=== PATIENT | female | born 1950 | race Caucasian/White ===

== ENCOUNTER → 2016-08-09 | Outpatient (CLI) | payer BC ==
[~2016-08-09] MED LIST: CHANTIX1 TAB PO; FISH OIL500 MG PO; LORTAB 7.5/5001 TAB PO; MULTIPLE VITAMI1 CAP PO; STOOL SOFTENER100 M1 PO; TRICOR67 MG PO; WELLBUTRIN75 MG PO
== END ==
LOC: MC.RAD 07:29
DX: N64.89 Other specified disorders of breast (principal)

== ENCOUNTER → 2017-08-22 | Outpatient (CLI) | payer BC, MEDICARE | LOC: MC.RAD 07:13 | DX: R92.1 Mammographic calcification found on diagnostic imaging of breast (principal) ==

== ENCOUNTER → 2017-12-28 | Outpatient (CLI) | payer BC | LOC: COL.RAD 07:26 | DX: M48.061 Spinal stenosis, lumbar region without neurogenic claudication (principal); M99.73 Connective tissue and disc stenosis of intervertebral foramina of lumbar region; M51.37 Other intervertebral disc degeneration, lumbosacral region; M47.817 Spondylosis without myelopathy or radiculopathy, lumbosacral region; M51.26 Other intervertebral disc displacement, lumbar region; Z98.890 Other specified postprocedural states | CPT/HCPCS: A9585 ==

== ENCOUNTER 2018-12-17 09:30 | Emergency (ER) | payer BC ==
[~2018-12-17] VITALS: Ht 172.7 cm; Wt 108.2 kg
[2018-12-17 09:38] VITALS: TEMP 98
[2018-12-17 09:48] LABS: BASO % 0.4 % (0.0-2.0); EOS # 0.1 (0.0-0.7); EOS % 1.5 % (0-4.0); GRAN # 4.6 (1.4-6.5); GRAN % 63.6 % (42.2-75.2); HEMATOCRIT 39.8 % (37.0-47.0); HEMOGLOBIN 13.3 g/dl (12.5-16.0); LYMPH # 1.8 (1.2-3.4); LYMPH % 24.5 % (20.0-51.0); MEAN CELL VOLUME 91 fl (80.0-100.0); MEAN CORPUSCULAR HEMOGLOBIN 30 pg (27.0-31.0); MEAN CORPUSCULAR HGB CONC 33 g/dl (33.0-37.0); MEAN PLATELET VOLUME 9.9 fl (7.4-10.4); MONO # 0.7 (0.1-0.6); MONO % 9.6 % (1.7-9.3); PLATELET COUNT 221 K/mm3 (130-400); RED BLOOD COUNT 4.37 M/mm3 (4.10-5.30); REDCELL DISTRIBUTION WIDTH-CV 12.2 % (11.5-14.5)
[2018-12-17 10:02] LABS: ALANINE AMINOTRANSFERASE 12 U/L (9-52); ALBUMIN 4.2 gm/dL (3.5-5.0); ALKALINE PHOSPHATASE 56 U/L (50-136); ANION GAP 13 mmol/L (7-16); AST,SGOT 31 U/L (15-37); BILIRUBIN,TOTAL 0.5 mg/dL (0.0-1.0); BLOOD UREA NITROGEN 13 mg/dL (7-17); CALCIUM 9.2 mg/dL (8.4-10.2); CARBON DIOXIDE 25 mmol/L (22-30); CHLORIDE 101 mmol/L (98-107); CREATININE, serum 0.63 (0.52-1.25); GLUCOSE 141 mg/dL (74-106); LIPASE 36 U/L (23-300); POTASSIUM 3.4 mmol/L (3.4-5.0); SODIUM 140 mmol/L (137-145); TOTAL PROTEIN 7.6 gm/dL (6.4-8.2)
[2018-12-17 10:03] LABS: C-REACTIVE PROTEIN < 0.5 mg/dL (0.0-0.9)
[2018-12-17 12:01] LABS: COLLECTION METHOD CLEAN CATCH
[2018-12-17 12:08] LABS: MUCOUS Present /lpf; PH 7 (5-8); SQUAMOUS EPITHELIAL 0-2 /hpf; URINE APPEARANCE Clear; URINE BACTERIA Rare /hpf; URINE BILIRUBIN Negative (NEGATIVE); URINE BLOOD Negative (NEGATIVE); URINE COLOR Yellow; URINE GLUCOSE Negative (NEGATIVE); URINE KETONE Negative (NEGATIVE); URINE LEUKOCYTE ESTERASE Negative (NEGATIVE); URINE NITRATE Negative (NEGATIVE); URINE PROTEIN(semi-quant) Negative (NEGATIVE); URINE RBC 0-2 /hpf; URINE UROBILINOGEN Negative (NEGATIVE)
[2018-12-17 12:18] VITALS: BP 149/80; PULSE 92
== END 2018-12-17 12:24 | disposition home or self-care (01) ==
LOC: COL.ER 09:30
PROVIDERS: Family Medicine
DX: T40.4X1A Poisoning by other synthetic narcotics, accidental (unintentional), initial encounter (principal); Z88.0 Allergy status to penicillin
CPT/HCPCS: J2060; J2405; J7030

== ENCOUNTER 2019-04-26 16:29 | Emergency (ER) | payer BC ==
[~2019-04-26] VITALS: Ht 172.7 cm; Wt 100.0 kg
[~2019-04-26 16:29] MED LIST changes: +AMITIZA24 MCG PO; +CRESTOR 10MG10 MG PO; +CYMBALTA 30MG30 MG PO; +CYMBALTA 60MG60 MG PO; +DITROPAN 5MG TAB5 MG PO; +ENJUVIA PO; +FENTANYL 75MCG TD; +PRILOSEC 20MG20 MG PO; +RELAFEN 50500 MG/TAB; -STOOL SOFTENER100 M1 PO; +STOOL SOFTENER100 M2 PO; +SYNTHROID0.05 MG/TA PO; +TRICOR145 MG PO; -TRICOR67 MG PO; +WELLBUTRIN SR150 M1 PO
[2019-04-26 16:33] VITALS: TEMP 99.5
[2019-04-26 17:14] LABS: BASO % 0.5 % (0.0-2.0); EOS # 0.1 (0.0-0.7); EOS % 1.3 % (0-4.0); GRAN # 4.2 (1.4-6.5); GRAN % 67.4 % (42.2-75.2); HEMATOCRIT 40.4 % (37.0-47.0); HEMOGLOBIN 13.6 g/dl (12.5-16.0); LYMPH # 1.3 (1.2-3.4); LYMPH % 21.2 % (20.0-51.0); MEAN CELL VOLUME 91 fl (80.0-100.0); MEAN CORPUSCULAR HEMOGLOBIN 31 pg (27.0-31.0); MEAN CORPUSCULAR HGB CONC 34 g/dl (33.0-37.0); MEAN PLATELET VOLUME 10.3 fl (7.4-10.4); MONO # 0.6 (0.1-0.6); MONO % 9.4 % (1.7-9.3); PLATELET COUNT 208 K/mm3 (130-400); RED BLOOD COUNT 4.46 M/mm3 (4.10-5.30); REDCELL DISTRIBUTION WIDTH-CV 12.2 % (11.5-14.5)
[2019-04-26 17:17] LABS: PROTHROMBIN TIME 11.4 SECONDS (9.7-12.8)
[2019-04-26 17:26] LABS: ALANINE AMINOTRANSFERASE 13 U/L (9-52); ALBUMIN 4.3 gm/dL (3.5-5.0); ALKALINE PHOSPHATASE 48 U/L (50-136); ANION GAP 11 mmol/L (7-16); AST,SGOT 28 U/L (15-37); BILIRUBIN,TOTAL 0.4 mg/dL (0.0-1.0); BLOOD UREA NITROGEN 19 mg/dL (7-17); CALCIUM 9.8 mg/dL (8.4-10.2); CARBON DIOXIDE 26 mmol/L (22-30); CHLORIDE 103 mmol/L (98-107); CREATININE, serum 0.82 (0.52-1.25); GLUCOSE 101 mg/dL (74-106); POTASSIUM 3.7 mmol/L (3.4-5.0); SODIUM 139 mmol/L (137-145); TOTAL PROTEIN 7.6 gm/dL (6.4-8.2)
[2019-04-26 17:27] LABS: C-REACTIVE PROTEIN < 0.5 mg/dL (0.0-0.9)
[2019-04-26 17:37] LABS: TROPONIN-I < 0.012 ng/mL (0.000-0.035)
[2019-04-26 17:57] LABS: COLLECTION METHOD CLEAN CATCH
[2019-04-26 18:06] LABS: MUCOUS Present /lpf; PH 7 (5-8); SQUAMOUS EPITHELIAL 0-2 /hpf; URINE APPEARANCE Clear; URINE BACTERIA Rare /hpf; URINE BILIRUBIN Negative (NEGATIVE); URINE BLOOD Negative (NEGATIVE); URINE COLOR Yellow; URINE GLUCOSE Negative (NEGATIVE); URINE KETONE Negative (NEGATIVE); URINE LEUKOCYTE ESTERASE Negative (NEGATIVE); URINE NITRATE Negative (NEGATIVE); URINE PROTEIN(semi-quant) Negative (NEGATIVE); URINE RBC 0-2 /hpf; URINE UROBILINOGEN Negative (NEGATIVE)
[2019-04-26 21:05] VITALS: BP 143/75; PULSE 86
== END 2019-04-26 20:51 | disposition home or self-care (01) ==
LOC: COL.ER 16:29
PROVIDERS: Emergency Medicine
DX: R00.0 Tachycardia, unspecified (principal); R06.00 Dyspnea, unspecified
CPT/HCPCS: J2405; J7030; Q9967

== ENCOUNTER → 2019-05-07 | Outpatient (CLI) | payer BC ==
--- NOTE | 2019-05-07 08:15 | NUR ---
Patient feeling nausous today, has migraine, and sucking on cough drop. Rescheduling PFT at this time. Garrett Garcia, RECRUITING AND SELECTION CONSULTANT
== END ==
LOC: COL.PUL 07:44
DX: R06.02 Shortness of breath (principal)

== ENCOUNTER → 2019-05-29 | Outpatient (CLI) | payer BC | LOC: COL.PUL 12:52 | DX: R06.02 Shortness of breath (principal); Z87.891 Personal history of nicotine dependence ==

== ENCOUNTER → 2019-12-27 | Outpatient (CLI) | payer MEDICARE | LOC: MC.RAD 15:49 | DX: Z12.31 Encounter for screening mammogram for malignant neoplasm of breast (principal) ==

== ENCOUNTER → 2020-01-09 | Outpatient (CLI) | payer MEDICARE ==
[~2020-01-09] VITALS: Ht 172.7 cm; Wt 112.3 kg
[~2020-01-09] MED LIST changes: +AMITRIPTYLINE H10 M1 PO; +B-12 500 MCG PO; +NAMENDA 10MG TA10 MG PO; +PREMARIN 0.9MG0.9 MG PO; +PROTONIX 40MG T40 MG PO
[2020-01-09 09:51] VITALS: BP 169/92; PULSE 87
[2020-01-09 10:35] VITALS: BP 136/81; PULSE 78
[2020-01-09 10:45] VITALS: BP 143/78; PULSE 82
[2020-01-09 11:00] VITALS: BP 157/79; PULSE 75
[2020-01-09 11:15] VITALS: BP 145/77; PULSE 74
[2020-01-09 11:30] VITALS: BP 133/86; PULSE 74
== END ==
LOC: COL.RAD 01-08 09:30
DX: M48.061 Spinal stenosis, lumbar region without neurogenic claudication (principal); M51.16 Intervertebral disc disorders with radiculopathy, lumbar region; Z98.1 Arthrodesis status
CPT/HCPCS: Q9965

== ENCOUNTER → 2020-12-26 | Outpatient (CLI) | payer MEDICARE | LOC: COL.RAD 11:08 | DX: M43.16 Spondylolisthesis, lumbar region (principal); M48.062 Spinal stenosis, lumbar region with neurogenic claudication; Z98.1 Arthrodesis status ==

== ENCOUNTER → 2023-08-25 | Outpatient (CLI) | payer MEDICARE | LOC: COL.VAS 10:20 | DX: I51.7 Cardiomegaly (principal); I34.0 Nonrheumatic mitral (valve) insufficiency; I35.0 Nonrheumatic aortic (valve) stenosis ==

== ENCOUNTER 2024-02-13 09:05 | Day surgery (SDC) | payer MEDICARE ==
[~2024-02-13] VITALS: Ht 172.7 cm; Wt 105.9 kg
[~2024-02-13 09:05] MED LIST changes: +LR 1,000 ML IV SCH; +Ondansetron 4 MG/2 ML VIAL IV PRN
[2024-02-13 10:17] VITALS: BP 126/77; PULSE 73; TEMP 97.8
[2024-02-13] MEDS ORDERED: Lidocaine PF 2% (20 MG/ML) 5 ML VIAL ONE (10:30)
[2024-02-13] MEDS ORDERED: LEXAPRO 10MG10 MG PO (10:37)
[2024-02-13] MEDS ORDERED: VESICARE 5MG5 MG PO (10:37)
[2024-02-13] MEDS ORDERED: ESTRACE 1MG1 MG/TAB PO (10:38)
[2024-02-13] MEDS ORDERED: BUSPAR DIVIDOSE15 MG PO (10:39)
[2024-02-13] MEDS ORDERED: ZYRTEC 10MG10 MG PO (10:39)
[2024-02-13] MEDS ORDERED: ARICEPT10 MG PO (10:39)
[2024-02-13 11:15] VITALS: BP 123/74; PULSE 63
[2024-02-13 11:25] VITALS: BP 125/80; PULSE 65
--- NOTE | 2024-02-13 11:31 | NUR ---
1115 PATIENT RETURNS [place] [facility] [place] [facility] [place]ART. PT AWAKE AND ALERT. RESPIRATIONS UNLABORED. AMBULATED TO RECLINER CHAIR WITH 2:1 SBA. PT DENIES NAUSEA OR ABDOMINAL PAIN. HOOKED UP TO MONITOR AND VS OBTAINED. CALL LIGHT AT SIDE AND SISTER IN LAW PRESENT. 1120 PATIENT TOLERATING GRAPE JUICE AND CHOCOLATE ICE CREAM WITHOUT NAUSEA OR DIFFICULTY SWALLOWING (EGD ONLY). 1130 IN ROOM SPEAKING WITH PATIENT. 1140 D/C INSTRUCTIONS REVIEWED WITH PATIENT. PT VERBALIZED UNDERSTANDING AND A COPY OF INSTRUCTIONS PROVIDED IN D/C FOLDER. 1150 PATIENT DRESSES SELF. 1200 PATIENT DISCHARGED FROM UNIT VIA W/C TO A PERSONAL VEHICLE. PT LEFT HOSPITAL IN STABLE CONDITION.
[2024-02-13 11:36] VITALS: BP 130/85; PULSE 66
== END 2024-02-13 11:56 | disposition home or self-care (01) ==
LOC: SDCO 09:05
DX: Z12.11 Encounter for screening for malignant neoplasm of colon (principal); D12.2 Benign neoplasm of ascending colon; D12.3 Benign neoplasm of transverse colon; D12.4 Benign neoplasm of descending colon; D12.5 Benign neoplasm of sigmoid colon; K63.5 Polyp of colon; F17.200 Nicotine dependence, unspecified, uncomplicated; K64.4 Residual hemorrhoidal skin tags; K63.89 Other specified diseases of intestine
CPT/HCPCS: J2704